=== PATIENT | female | born 1955 | race Caucasian/White ===

== ENCOUNTER → 2018-06-24 | Outpatient (CLI) | payer OTHER ==
--- NOTE | 2018-06-24 12:57 | RAD ---
Left upper extremity venous ultrasound, 06/24/2018: HISTORY: Left arm pain and swelling, left neck swelling Duplex evaluation of the major veins in the left upper extremity was performed including grayscale, color-flow and spectral Doppler analysis. The left internal jugular vein is enlarged and contains heterogeneous material compatible with thrombus. There is only a small amount of residual color flow in that vessel. There is a small filling defect in the subclavian vein compatible with nonocclusive thrombus. The left axillary, brachial, cephalic, basilic, radial and ulnar veins are all patent. IMPRESSION: 1. Large thrombus in the left jugular vein nearly occluding that vessel. 2. Small nonocclusive thrombus in the left subclavian vein. Note: The patient was sent to Dr. Perez's office for further evaluation. The remote sensing technologist is currently notifying Dr. Perez of these findings. Electronically signed by: Nicolas Lynn MD (06/24/2018 12:54 PM) [facility]
== END | disposition home or self-care (01) ==
LOC: US 11:14
PROVIDERS: ATTEND Internal Medicine Hematology & Oncology
DX: I82.B12 Acute embolism and thrombosis of left subclavian vein (principal); I82.C12 Acute embolism and thrombosis of left internal jugular vein; Z85.118 Personal history of other malignant neoplasm of bronchus and lung
CPT/HCPCS: 93971